=== PATIENT | female | born 1970 | race African-American/Black ===

== ENCOUNTER 2016-06-11 15:59 | Emergency (ER) | payer OTHER ==
[2016-06-11 16:08] VITALS: BP 130/58; PULSE 83; TEMP 97.5; BMI 35.2
--- NOTE | 2016-06-11 16:16 | PDOC ---
History of Present Illness - General History Source: Patient Exam Limitations: No Limitations - History of Present Illness Initial Comments: 06/11/16 16:16 The patient is a 45 year old female, with a significant past medical history of right breast CA (2 years ago), who presents to the emergency department with left knee bakers cyst burst yesterday. She reports noticing a lump by her knee during physical therapy yesterday, which she notes the cyst burst later during therapy. She reports there was some blood draining after the bursting. She denies any clicking, locking, or catching in her knee. She denies any numbness and tingling in her LE. She denies fever, chills, headache and dizziness. Allergies: Fentanyl Past surgical history: LEFT TKR (february). Mastectomy . Social history: denies EtOH, drug, and tobacco use. <Enrique Lewis - Last Filed: 06/11/16 16:16> <Jignesh Wong - Last Filed: 06/11/16 16:45> - General Chief Complaint: Wound Stated Complaint: BURST CYST ON LEFT KNEE Time Seen by Provider: 06/11/16 16:02 Past History <Enrique Lewis - Last Filed: 06/11/16 16:16> - Past Medical History Anemia: No Asthma: No Cancer: No (RT MASTECTOMY/TRAM 08/2010-FOLLOWED WITH CHEMO,RT) Cardiac Disorders: No CVA: No COPD: No CHF: No Dementia: No Diabetes: No GI Disorders: Yes (HEARTBURN) Disorders: Yes (RENAL CYSTS) HTN: Yes Hypercholesterolemia: No Liver Disease: No Seizures: No Thyroid Disease: No - Surgical History Abdominal Surgery: Yes (TRAM FLAP 2012) Appendectomy: No Cardiac Surgery: No Cholecystectomy: Yes (2008) Lung Surgery: No Neurologic Surgery: No Orthopedic Surgery: Yes (LEFT KNEE ARTHROSCOPY X 3. WILLY TO NECK AND BACK-LAST INJECTION OVER 1 YEAR,) - Psycho/Social/Smoking Cessation Hx Anxiety: No Suicidal Ideation: No Smoking Status: No Smoking History: Never smoked Have you smoked in the past 12 months: No Number of Cigarettes Smoked Daily: 0 Hx Alcohol Use: No Drug/Substance Use Hx: No Substance Use Type: None, Prescribed Hx Substance Use Treatment: No <Jignesh Wong - Last Filed: 06/11/16 16:45> - Past Medical History Allergies/Adverse Reactions: Allergies Allergy/AdvReac Type Severity Reaction Status Date / Time adhesive Allergy Intermediate Swelling Verified 06/11/16 16:01 fentanyl AdvReac Severe "HALLUCINAT Verified 06/11/16 16:01 IONS" Home Medications: Ambulatory Orders Zolpidem Tartrate [Ambien] 10 mg PO HS PRN 06/01/11 Docusate Sodium [Colace] 100 mg PO DAILY #0 capsule 06/08/11 Diphenhydramine HCl [Benadryl Capsule -] 25 mg PO HS PRN 06/09/13 Multivitamin [Multivitamins] 1 each PO DAILY 06/09/13 Sertraline HCl [Zoloft -] 100 mg PO HS 06/09/13 Tamoxifen Citrate 20 mg PO HS 06/09/13 Gabapentin 400 mg PO TID 02/28/16 Hydrochlorothiazide 25 mg PO HS 02/28/16 Ibuprofen 800 mg PO TID PRN 02/28/16 Oxycodone HCl [Oxycontin] 15 mg PO BID 02/28/16 Amlodipine Besylate [Norvasc] 5 mg PO HS 03/09/16 Diclofenac Epolamine [Flector] 1 each TD DAILY 03/09/16 Omeprazole 20 mg PO HS 03/09/16 Oxycodone HCl [Roxicodone -] 5 mg PO Q4H PRN #0 tablet MDD 6 03/11/16 Oxycodone HCl [Roxicodone -] 10 mg PO Q4H PRN #0 tablet MDD 6 03/11/16 Review of Systems - Review of Systems Constitutional: No: Symptoms Reported HEENTM: No: Symptoms Reported Respiratory: No: Symptoms reported Cardiac (ROS): No: Symptoms Reported ABD/GI: No: Symptoms Reported : No: Symptoms Reported Musculoskeletal: Yes: Joint Pain (Right knee pain and cyst. ) Integumentary: No: Symptoms Reported Neurological: No: Symptoms reported All Other Systems: Reviewed and Negative <Enrique Lewis - Last Filed: 06/11/16 16:16> *Physical Exam - Vital Signs Last Vital Signs Temp Pulse Resp BP Pulse Ox 97.5 F L 83 18 130/58 98 06/11/16 16:01 06/11/16 16:01 06/11/16 16:01 06/11/16 16:01 06/11/16 16:01 - Physical Exam General Appearance: Yes: Nourished, Appropriately Dressed HEENT: positive: EOMI, NAOMY, Normal ENT Inspection Neck: positive: Supple Respiratory/Chest: positive: Lungs Clear, Normal Breath Sounds Cardiovascular: positive: Regular Rhythm, Regular Rate Gastrointestinal/Abdominal: positive: Normal Bowel Sounds, Flat, Soft Musculoskeletal: positive: Other (Surgical scar well healing. Slight hyperpigmentation. Small granulation tissue. 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 <Enrique Lewis - Last Filed: 06/11/16 16:16> - Discharge Dispostion Admit: No <Jignesh Wong - Last Filed: 06/11/16 16:45> Diagnosis at time of Disposition: Visit for wound check - Discharge Dispostion Disposition: HOME Condition at time of disposition: Fair - Referrals Referrals: Nadeem Higgins MD [Staff Physician] - - Patient Instructions Printed Discharge Instructions: Minor Wounds (Alternative Therapy) Additional Instructions: clean and dry , daily dressing change at cream Follow up with PMD
== END 2016-06-11 16:54 | disposition home or self-care (01) ==
LOC: FER 15:59
DX: Z48.00 Encounter for change or removal of nonsurgical wound dressing (principal); Z85.3 Personal history of malignant neoplasm of breast; R12 Heartburn; I10 Essential (primary) hypertension
CPT/HCPCS: 99282-25

== ENCOUNTER 2017-06-22 06:54 | Inpatient (IN) | payer OTHER ==
[2017-06-18 13:21] VITALS: BMI 36.0
[2017-06-22] MEDS ORDERED: ceFAZolin SODIUM 1 GM VIAL ONE ×2 (07:59→21:44)
[2017-06-22] MEDS ORDERED: HEPARIN NA (PORCINE) 5,000 UNITS/ML 1ML VIAL ONE (08:00)
[2017-06-22] MEDS ORDERED: BACITRACIN 15 GM TUBE TOPICAL OINTMENT ONE ×4 (08:46→17:28)
[2017-06-22] MEDS ORDERED: MIDAZOLAM HCL 2 MG/2 ML SINGLE DOSE VIAL ONE ×2 (09:47)
[2017-06-22] MEDS ORDERED: EPINEPHrine/PF 1 MG/1 ML (1:1,000) AMPULE ONE ×3 (09:47→15:46)
[2017-06-22] MEDS ORDERED: fentaNYL CITRATE 250 MCG/5 ML VIAL ONE (09:47)
[2017-06-22] MEDS ORDERED: LIDOCAINE HCL 1%, 10 MG/ML (20ML VIAL) ONE (09:47)
[2017-06-22] MEDS ORDERED: ACETAMINOPHEN INJECTION 100 ML IVPB ONE ×2 (09:51→17:10)
[2017-06-22] MEDS ORDERED: DESFLURANE GAS 240 ML BOTTLE IH ONE (10:05)
[2017-06-22] MEDS ORDERED: DEXAMETHASONE SOD PHOSPHATE 4 MG/1 ML VIAL ONE (10:26)
[2017-06-22] MEDS ORDERED: PROPOFOL 20 ML ONE (10:26)
[2017-06-22] MEDS ORDERED: ROCURONIUM BROMIDE 50 MG/5 ML VIAL ONE ×2 (10:27)
[2017-06-22] MEDS ORDERED: ceFAZolin SODIUM 1 GM VIAL IVPB ONE ×2 (10:59→15:30)
[2017-06-22] MEDS ORDERED: PROMETHAZINE HCL 25 MG/1 ML VIAL IVPB PRN (18:51)
[2017-06-22] MEDS ORDERED: oxyCODONE HCL 5 MG TABLET PO PRN ×2 (18:51→19:57)
[2017-06-22] MEDS ORDERED: ONDANSETRON 4 MG/2 ML VIAL IVPUSH PRN (18:51)
[2017-06-22] MEDS ORDERED: LACTATED RINGERS SOLUTION 1,000 ML IV SCH ×2 (19:00→19:45)
[2017-06-22] MEDS ORDERED: ONDANSETRON 4 MG/2 ML VIAL IVPB PRN (19:31)
--- NOTE | 2017-06-22 19:38 | OP ---
Operative Note - Note: Operative Date: 06/22/17 Pre-Operative Diagnosis: right breast cancer with deformity of reconstructed breast Operation: Revision of right breast TRAM flap reconstruction and bilateral abdominal donor sites, Liposuction fat harvest from bilateral inner thighs, abdomen and back, Lipectomy of back fat Findings: above Post-Operative Diagnosis: Same as Pre-op Surgeon: Panfilo Pinedo Anesthesia: General Estimated Blood Loss (mls): 200 Drains & Tubes with Location: CARMELO x 2
[2017-06-22] MEDS ORDERED: MORPHINE SULFATE 10 MG/1 ML *VIAL IVPUSH PRN ×2 (19:39→19:56)
[2017-06-22] MEDS ORDERED: MORPHINE SULFATE 10 MG/1 ML *VIAL ONE (19:43)
[2017-06-22] MEDS: morphine CARPU-JECT 2 MG/1 ML DISP.SYRIN IVPUSH PRN ×4 (19:45→20:15)
--- NOTE | 2017-06-22 19:51 | PN ---
Progress Note (short form) - Note Progress Note: Patient evaluated Post-op from surgery VSS- AF, comfortable, UOP 700 in OR c/o soreness to the right forearm. Neurologically intact, full distal sensation and motor function of all peripheral nerves. Will observe. Plan for sq heparin starting 6 hours post op, early ambulation.
[2017-06-22] MEDS ORDERED: LACTATED RINGERS SOLUTION 1,000 ML/1,000 ML INFUS.BAG IV SCH (20:00)
[2017-06-22] MEDS: CEFAZOLIN 1 GM PUSH 1 GM/10 ML DISP.SYRIN IVPUSH SCH (21:50)
[2017-06-22] MEDS ORDERED: diphenhydrAMINE HCL 25 MG CAPSULE (FP) PO PRN (22:00)
[2017-06-22] MEDS: GABAPENTIN 400 MG CAPSULE (FP) PO SCH (23:54)
[2017-06-22] MEDS: PANTOPRAZOLE 20 MG TABLET (FP) PO SCH (23:54)
[2017-06-23] MEDS: HEPARIN NA (PORCINE) 5,000 UNITS/ML 1ML VIAL SQ SCH ×3 (01:06→23:37)
[2017-06-23] MEDS: CEFAZOLIN 1 GM PUSH 1 GM/10 ML DISP.SYRIN IVPUSH SCH ×4 (03:10→23:38)
[2017-06-23] MEDS: GABAPENTIN 400 MG CAPSULE (FP) PO SCH ×3 (05:34→23:36)
[2017-06-23] MEDS ORDERED: PT OWN MED DRAWER 7, Y5N ONE (06:38)
[2017-06-23] MEDS ORDERED: INSULIN DETEMIR 100 UNITS/ML MDV SQ ONE (06:40)
[2017-06-23] MEDS ORDERED: ZOLPIDEM TARTRATE 5 MG TABLET PO PRN (08:30)
--- NOTE | 2017-06-23 08:40 | PN ---
Progress Note (short form) - Note Progress Note: POD 1 post right breast revision VSS AF until one temp this morning 102.3 Clinically without sign of fever, distress, infection All wounds CDI Drainage SS/thin, high output as expected Ambulating, receiving SQ heparin R arm pain resolving with no neurologic deficits Will observe today, if remains afebrile will d/c this evening Continue ambulation and DVT prophylaxis
[2017-06-23] MEDS: oxyCODONE HCL 5 MG TABLET PO PRN ×2 (10:54→14:06)
[2017-06-23] MEDS: ACETAMINOPHEN 325 MG TABLET (FP) PO PRN ×2 (10:54→18:20)
[2017-06-23] MEDS: DOCUSATE SODIUM 100 MG CAPSULE (FP) PO SCH (10:54)
[2017-06-23] MEDS: POTASSIUM CHLORIDE 10 MEQ in SODIUM CHLORIDE 0.45% 1,000 ML IVPB SCH (11:19)
[2017-06-23 12:29] LABS: HEMATOCRIT 30.8 % (32.4-45.2); HEMOGLOBIN 9.9 GM/dL (10.7-15.3); MCH 27.3 pg (25.7-33.7); MCHC 32.2 g/dl (32.0-36.0); MEAN CELL VOLUME 84.8 fl (80-96); MEAN PLT VOLUME 8.9 fl (7.5-11.1); PLATELET COUNT 197 K/MM3 (134-434); RBC 3.64 M/mm3 (3.60-5.2); RDW 14.1 % (11.6-15.6); WHITE BLOOD COUNT 11.6 K/mm3 (4.0-10.0)
--- NOTE | 2017-06-23 15:18 | PN ---
Progress Note (short form) - Note Progress Note: Anesthesia Post op Pt seen and examined S:Alert and awake O: Vital Signs Temperature 98.6 F 06/23/17 14:48 Pulse Rate 111 H 06/23/17 14:48 Respiratory Rate 18 06/23/17 14:48 Blood Pressure 104/68 06/23/17 14:48 O2 Sat by Pulse Oximetry (%) 97 06/22/17 22:20 CBC, BMP 06/23/17 11:50 A/P: s/p revision right tram flap Doing well post op Continue current care Lobito Penn MD
[2017-06-23] MEDS ORDERED: LACTATED RINGERS SOLUTION 1,000 ML/1,000 ML INFUS.BAG IV STA (18:38)
[2017-06-23] MEDS ORDERED: HYDROCHLOROTHIAZIDE 25 MG TABLET (FP) PO SCH (22:00)
[2017-06-23] MEDS ORDERED: SERTRALINE HCL 50 MG TABLET (FP) PO SCH (22:00)
[2017-06-23] MEDS ORDERED: amLODIPine BESYLATE 5 MG TABLET (FP) PO SCH (22:00)
[2017-06-23] MEDS: PANTOPRAZOLE 20 MG TABLET (FP) PO SCH (23:36)
[2017-06-24] MEDS: POTASSIUM CHLORIDE 10 MEQ in SODIUM CHLORIDE 0.45% 1,000 ML IVPB SCH ×2 (00:29→10:39)
[2017-06-24] MEDS: CEFAZOLIN 1 GM PUSH 1 GM/10 ML DISP.SYRIN IVPUSH SCH ×2 (02:37→09:49)
[2017-06-24] MEDS: GABAPENTIN 400 MG CAPSULE (FP) PO SCH ×2 (06:22→13:21)
--- NOTE | 2017-06-24 08:46 | PN ---
Progress Note (short form) - Note Progress Note: POD 2 Patient with one episode of fever yesterday afternoon and only low grade since. Ambulating, on SQ heparin, Duplex last night negative to the limits of the study. No leg pain or swelling beyond the appropriate for the lipo Clinically with no signs of infection: All wounds checked with no drainage or erythema, no pain on urination, no cough Arm pain is resolving with no neurologic symptoms. Tolerating reg diet. CARMELO thin serous fluid I have discussed with the patient that the likely source of her low grade temps within this short post op period is atelectasis and that she must be compliant with incentive spirometer (which she is) I have discussed drain care and log with patient. She is asking to go home, which is ok as long as she returns to ER if she has more fever, new pain, leg symptoms or SOB. She will be discharged on eliquis antibiotics and pain meds.
[2017-06-24] MEDS ORDERED: SODIUM CHLORIDE 500 ML IV ONE (09:45)
[2017-06-24] MEDS: HEPARIN NA (PORCINE) 5,000 UNITS/ML 1ML VIAL SQ SCH (09:49)
[2017-06-24] MEDS: DOCUSATE SODIUM 100 MG CAPSULE (FP) PO SCH (09:49)
[2017-06-24 15:17] VITALS: BP 129/69; PULSE 82; TEMP 99.6
--- NOTE | 2017-06-25 09:30 | OP ---
DATE OF OPERATION: 06/22/2017 TITLE OF PROCEDURES: 1. Revision of right TRAM (transverse rectus abdominis) flap reconstructed breast by rigottomy release of inset TRAM flap scars, reduction of lateral breast fold deformity. 2. Free fat grafting to right TRAM flap for volume enhancement. 3. Adjacent tissue transfer rearrangement of TRAM flap donor site deformity with local skin and subcutaneous flaps. ATTENDING SURGEON: Panfilo Pinedo MD CADD TECHNICIAN: There were no assistants. ANESTHESIA: General endotracheal anesthesia. The patient was marked in holding area, awake and aware of all incisions and resulting scars, including those on fat donor sites as well as on the TRAM flap and the abdominal donor site. Patient was counseled on all risks, benefits, and alternatives to the procedure, which she understood and agreed to proceed. PROCEDURE FOLLOWS: Patient was brought to the operating room. She was intubated in a supine position. Centeno catheter was placed, which was removed at the end of the procedure. Patient was then positioned properly in a prone position using chest rolls, all padding and positional aids, and padding to pressure points. She was then prepped and draped in standard surgical fashion. A time-out was called. Patient, procedure, incision sites were verified. At this point, patients back was infiltrated with wetting solution. The wetting solution was for the first 3 L 1 L of normal saline, 1 ampule of 1:1000 epinephrine, and 2 mL of 1% lidocaine plain. For the 2 nd 3 L of wetting solution, it was 1 L of normal saline with 1 ampule of 1:1000 epinephrine per liter. The tumescent solution was infiltrated to the back and medial thighs. A full 25 minutes was awaited for hemostatic effect. At this point, the fat harvesting procedure was then performed using a combination of 5 and 4 mm cannulas, power-assisted liposuction machine with a Revolve Fat Harvesting System. The full yield of the fat harvest was 250 mL of useable injectable fat. However, the lipoaspirates were as follows: On the left flank was 1050 mL, on the right flank was 1400 mL, the left inner thigh 100 mL, the right inner thigh 100 mL, the left upper back 800 mL, and the right upper back was 700 mL. The end point was the appearance of blood in the lipoaspirate and smooth, even contour. As was discussed with the patient, to correct loose skin rolls on the back, a direct excision of skin rolls was to be performed. This was performed bilaterally using bilateral obliquely transverse scars on the back. Excision of skin, fat is performed. The tissues were slightly undermined to release points of ligamentous attachment, and the closure was performed with a series of interrupted buried fascial system 2-0 Vicryl suture with a quilting element of the deep posterior chest wall. Additionally, a running 3-0 PDS V-Loc within the mid dermis was performed followed by running subcuticular 3-0 Monocryl suture. Each of these closures performed over a size 10 round Hector drain, secured with a 3-0 silk drain suture. At this point, dressings were applied. The patient was then turned to a supine position onto stretcher, and she was then brought in supine position back onto the operating table. All extremities were secured. A pillow was placed beneath the knees. Pressure points were carefully padded. Position was checked and confirmed by Anesthesia and nursing teams. Patient was reprepped and draped. At this point, the further fat harvesting was performed, first by infiltration of wetting solution. A total of 3 L of wetting solution was injected here on the anterior surface, part of the abdomen and medial thighs and flanks. A full 20 minutes was awaited for hemostatic effect of the wetting solution. After which, fat was then further harvested as it was on the posterior side adding to the injectable yield. The harvest was performed with a power-assisted liposuction machine using 5 and 4 mm cannulas. The lipoaspirates were from the right medial thigh 900 mL, from the left medial thigh 700 mL, and from the abdomen 1550 mL. The total lipoaspirate for the case was 6200 mL. At this point, all liposuction was performed through 1 cm stab wound incisions, all of which were closed with a series of interrupted 5-0 nylon sutures. Using a 1.7-mm injection cannula, several points along the lateral border of the TRAM flap were located, and 5-mm incisions were made for injection. Ragsdale technique of multiple-pass small-volume injections was performed. A total of 250 mL of fat was injected into the right surrounding tissue of the TRAM flap as well as the TRAM flap itself. The superior depressed border of the TRAM flap was released with a direct scar release rigottomy allowing for better upper pole slope. The lateral border included a distortion of lateral portion of the inframammary fold continuing onto the back. This was directly excised, recreating the inframammary fold laterally with a series of interrupted sutures from the flap down to the lateral chest wall using 2-0 Vicryl suture. Skin was then closed with a series of interrupted buried deep dermal 3-0 Monocryl suture followed by a running subcuticular 3-0 Monocryl suture. This recreated the lateral fold of the TRAM flap, and the fat grafting augmented the volume and corrected for a superior pole deformity. The injection sites were closed with a series of interrupted 5-0 nylon sutures. The deformities of the TRAM flap abdominal wall donor site were then addressed. These were marked for excision. The abdominal flap was mobilized medially in order to correct for the lateral deformities, and closure was performed after excision of skin and fat on the lateral lower portion of the abdominal TRAM flap donor site deformity. This was a skin and subcutaneous flap that on each side was roughly 50 sq cm, 2 of these were performed with medial mobilization of the skin, fat, and Scarpas layer fascia. The Scarpas layer fascia was closed with a series of interrupted buried 2-0 Vicryl suture. Skin after being mobilized medially was closed with a series of interrupted buried deep dermal 3-0 Monocryl sutures followed by running subcuticular 3-0 Monocryl sutures. This was performed bilaterally. All incisions were closed with 5-0 nylon sutures in addition to the flap rearrangements. At the completion of the procedure, all dressings were applied with Steri-Strips, 4x4 gauze, a compression abdominal and thigh garment was applied, a surgical bra was applied. Patient was awoken from anesthesia, transferred to recovery without complications. Centeno catheter was removed. Larry [id number]
--- NOTE | 2017-06-25 16:04 | PATH ---
Surgical Pathology Report Patient Name: LEESA CROW Med. Rec. #: [id number] /Age/Gender: 1970 (Age: 46) / F Account: [id number] Location: [facility] MED/SURG Taken: 06/22/2017 Received: 06/23/2017 Reported: 06/25/2017 Physicians: Panfilo Pinedo Specimen(s) Received EXCESS DONOR SITE TISSUE Clinical History Right breast cancer Final Diagnosis EXCESS DONOR SITE TISSUE, RIGHT BREAST REVISION: BENIGN SKIN WITH SCAR AND UNDERLYING FIBROADIPOSE TISSUE. Electronically Signed Mar Forbes M.D. Gross Description Received in formalin labeled "excess donor site tissue," is a 671 g, 21.0 x 18.5 x 4.0 cm aggregate of multiple irregular, unoriented portions of fibroadipose tissue and brown skin. One of the portions of skin displays a possible well healed scar. Sectioning reveals foci of white fibrous tissue. Plant Machinist sections are submitted in 3 cassettes. /06/24/2017 [facility]06/24/2017
== END 2017-06-24 14:28 | disposition home or self-care (01) | DRG 363 ==
LOC: JASUSAT 06:54 → J8W 22:49 → JASUSAT 22:50
PROVIDERS: ADMIT Plastic Surgery; ATTEND Plastic Surgery
PROC: 0JDN3ZZ Extraction of Right Lower Leg Subcutaneous Tissue and Fascia, Percutaneous Approach (ICD-10-PCS; 2017-06-22)
PROC: 0JDP3ZZ Extraction of Left Lower Leg Subcutaneous Tissue and Fascia, Percutaneous Approach (ICD-10-PCS; 2017-06-22)
PROC: 0JD73ZZ Extraction of Back Subcutaneous Tissue and Fascia, Percutaneous Approach (ICD-10-PCS; 2017-06-22)
PROC: 0J9630Z Drainage of Chest Subcutaneous Tissue and Fascia with Drainage Device, Percutaneous Approach (ICD-10-PCS; 2017-06-22)
PROC: 0KXK0Z6 Transfer Right Abdomen Muscle, Transverse Rectus Abdominis Myocutaneous Flap, Open Approach (ICD-10-PCS; principal; 2017-06-22 09:00)
PROC: 0JD83ZZ Extraction of Abdomen Subcutaneous Tissue and Fascia, Percutaneous Approach (ICD-10-PCS; 2017-06-22 09:00)
DX: N65.0 Deformity of reconstructed breast (principal); C50.911 Malignant neoplasm of unspecified site of right female breast
CPT/HCPCS: 36415; 71045-TC-FY; 85027; 88304-TC; 93970-TC; 94010; 94760; J1644

== ENCOUNTER 2017-06-24 21:13 | Emergency (ER) | payer OTHER ==
[2017-06-24 22:20] VITALS: BP 146/75; PULSE 78; TEMP 99.8; BMI 36.0
--- NOTE | 2017-06-24 22:35 | PDOC ---
History of Present Illness - General History Source: Patient Exam Limitations: No Limitations - History of Present Illness Initial Comments: 06/24/17 23:21 The patient is a 45 year old female with a significant PMH of right breast CA s/ p recent right breast revision TRAM flap reconstruction and bilateral abdominal donor sites, liposuction from bilateral inner thighs, abdomen and back on 2017 who presents to the emergency department with fever (T. max 102F), generalized malaise, and bilateral LE swelling beginning approximately yesterday. The patient notes her bilateral LE swelling is worse in the right LE. The patient reports having a bilateral duplex US done yesterday which showed no evidence of DVT. The patients surgery was conducted by Dr. Panfilo Pineod. She also notes constipation over the past week. The patient denies chest pain, shortness of breath, headache and dizziness. Denies chills, nausea, vomit, diarrhea. Denies dysuria, frequency, urgency and hematuria. Allergies: Adhesive, Fentanyl. Past surgical history: TRAM flap. (2012, 2017). Liposuction (2017). Left TKR. Mastectomy. Cholecystectomy. Social history: No reported cigarette, alcohol, or drug use. Plastics: Dr. Panfilo Pinedo <Dario Ramsey - Last Filed: 06/25/17 00:44> - General History Source: Patient <Joe Funez - Last Filed: 06/25/17 02:17> - General Chief Complaint: SIRS, Suspected/Possible Stated Complaint: SWELLING OF LEG/FEVER Time Seen by Provider: 06/24/17 22:27 Past History <Dario Ramsey - Last Filed: 06/25/17 00:44> - Past Medical History Anemia: No Cancer: Yes (RT MASTECTOMY/TRAM 08/2010-FOLLOWED WITH CHEMO,RT) COPD: No GI Disorders: Yes (HEARTBURN) Disorders: Yes (RENAL CYSTS) HTN: Yes Psychiatric Problems: Yes (DEPRESSION) - Surgical History Abdominal Surgery: Yes (TRAM FLAP 2012) Cholecystectomy: Yes (2008) Orthopedic Surgery: Yes (LEFT KNEE ARTHROSCOPY X 3. WILLY TO NECK AND BACK-LAST INJECTION OVER 1 YEAR,) - Suicide/Smoking/Psychosocial Hx Smoking Status: No Smoking History: Never smoked Have you smoked in the past 12 months: No Number of Cigarettes Smoked Daily: 0 Information on smoking cessation initiated: No Hx Alcohol Use: No Drug/Substance Use Hx: No Substance Use Type: None, Prescribed Hx Substance Use Treatment: No <WilliamdatJoe - Last Filed: 06/25/17 02:17> - Past Medical History Allergies/Adverse Reactions: Allergies Allergy/AdvReac Type Severity Reaction Status Date / Time adhesive Allergy Intermediate Swelling Verified 06/22/17 07:46 fentanyl AdvReac Severe "HALLUCINAT Verified 06/22/17 07:46 IONS" Home Medications: Ambulatory Orders Zolpidem Tartrate [Ambien] 10 mg PO HS PRN 06/01/11 Docusate Sodium [Colace] 100 mg PO DAILY #0 capsule 06/08/11 Diphenhydramine HCl [Benadryl Capsule -] 25 mg PO HS PRN 06/09/13 Multivitamin [Multivitamins] 1 each PO DAILY 06/09/13 Sertraline HCl [Zoloft -] 100 mg PO HS 06/09/13 Tamoxifen Citrate 20 mg PO HS 06/09/13 Gabapentin 400 mg PO TID 02/28/16 Hydrochlorothiazide 25 mg PO HS 02/28/16 Amlodipine Besylate [Norvasc] 5 mg PO HS 03/09/16 Diclofenac Epolamine [Flector] 1 each TD DAILY 03/09/16 Omeprazole 20 mg PO HS 03/09/16 oxyCODONE HCL [Roxicodone -] 10 mg PO Q4H PRN #0 tablet MDD 6 03/11/16 Apixaban [Eliquis] 2.5 mg PO BID #30 tablet 06/24/17 Review of Systems - Review of Systems Able to Perform ROS?: Yes Comments:: 06/24/17 23:22 CONSTITUTIONAL: (+) Fever. (+) Generalized malaise. (+) Body aches. Absent: chills, diaphoresis, generalized weakness, loss of appetite HEENT: Absent: rhinorrhea, nasal congestion, throat pain, throat swelling, difficulty swallowing, mouth swelling, ear pain, eye pain, visual Changes CARDIOVASCULAR: Absent: chest pain, syncope, palpitations, irregular heart rate, lightheadedness , peripheral edema RESPIRATORY: Absent: cough, shortness of breath, dyspnea with exertion, orthopnea, wheezing, stridor, hemoptysis GASTROINTESTINAL: (+) Constipation. Absent: abdominal pain, abdominal distension, nausea, vomiting, diarrhea, melena , hematochezia GENITOURINARY: Absent: dysuria, frequency, urgency, hesitancy, hematuria, flank pain, genital pain MUSCULOSKELETAL: Absent: myalgia, arthralgia, joint swelling SKIN: Absent: rash, itching, pallor HEMATOLOGIC/IMMUNOLOGIC: Absent: easy bleeding, easy bruising, lymphadenopathy, frequent infections ENDOCRINE: Absent: unexplained weight gain, unexplained weight loss, heat intolerance, cold intolerance NEUROLOGIC: Absent: headache, focal weakness or paresthesias, dizziness, unsteady gait, seizure, mental status changes, bladder or bowel incontinence PSYCHIATRIC: Absent: anxiety, depression, suicidal or homicidal ideation, hallucinations. <Dario Ramsey - Last Filed: 06/25/17 00:44> *Physical Exam - Vital Signs Last Vital Signs Temp Pulse Resp BP Pulse Ox 99.8 F H 78 20 146/75 100 06/24/17 22:17 06/24/17 22:17 06/24/17 22:17 06/24/17 22:17 06/24/17 22:17 - Physical Exam Comments: 06/24/17 23:22 GENERAL: Well developed, well nourished. Awake and alert. No acute distress. HEENT: Normocephalic, atraumatic. PERRLA, EOMI. No conjunctival pallor. Sclera are non- icteric. Moist mucous membranes. Oropharynx is clear. NECK: Supple. Full ROM. No JVD. Carotid pulses 2+ and symmetric, without bruits. No thyromegaly. No lymphadenopathy. CARDIOVASCULAR: (+) Unable to examine chest as patient will not remove post- surgical binder PULMONARY: (+) Unable to examine chest as patient will not remove post-surgical binder ABDOMINAL: (+) Unable to examine abdomen as patient will not remove post- surgical binder MUSCULOSKELETAL: Normal range of motion at all joints. No bony deformities or tenderness. No CVA tenderness. EXTREMITIES: (+) Bilateral LE edema, right worse than left. No cyanosis. No clubbing. No calf tenderness. SKIN: Warm and dry. Normal capillary refill. No rashes. No jaundice. NEUROLOGICAL: Alert, awake, appropriate. Cranial nerves 2-12 intact. No deficits to light touch and temperature in face, upper extremities and lower extremities. No motor deficits in the in face, upper extremities and lower extremities. Normoreflexic in the upper and lower extremities. Normal speech. Toes are downgoing bilaterally. Gait is normal without ataxia. PSYCHIATRIC: Cooperative. Good eye contact. Appropriate mood and affect. <Dario Ramsey - Last Filed: 06/25/17 00:44> - Vital Signs Last Vital Signs Temp Pulse Resp BP Pulse Ox 99.8 F H 78 20 146/75 100 06/24/17 22:17 06/24/17 22:17 06/24/17 22:17 06/24/17 22:17 06/24/17 22:17 <Joe Funez - Last Filed: 06/25/17 02:17> ED Treatment Course - LABORATORY CBC & Chemistry Diagram: 06/24/17 23:30 06/24/17 23:30 <Dario Ramsey - Last Filed: 06/25/17 00:44> - LABORATORY CBC & Chemistry Diagram: 06/24/17 23:30 06/24/17 23:30 <Joe Funez - Last Filed: 06/25/17 02:17> *DC/Admit/Observation/Transfer - Attestations Scribe Attestion: 06/24/17 23:22 Documentation prepared by Dario Ramsey, acting as medical technologist chemistry for Joe Funez DO. <Dario Ramsey - Last Filed: 06/25/17 00:44> - Discharge Dispostion Admit: No <Joe Funez - Last Filed: 06/25/17 02:17> Diagnosis at time of Disposition: Fever, Leg swelling - Discharge Dispostion Disposition: HOME Condition at time of disposition: Stable - Referrals Referrals: Wayne Pinedo [Primary Care Provider] - - Patient Instructions Printed Discharge Instructions: DI for Fever (Symptom) -- Adult Additional Instructions: Please follow up with your surgeon to have your surgical wounds evaluated. REturn if any problems. - Post Discharge Activity
[2017-06-24 23:40] LABS: BASO % 0.6 % (0-2.0); EOS % 1.6 % (0-4.5); HEMATOCRIT 27.4 % (32.4-45.2); HEMOGLOBIN 9.2 GM/dL (10.7-15.3); LYMPH % 32.6 % (8-40); MCHC 33.8 g/dl (32.0-36.0); NEUT % 55.2 % (42.8-82.8); PLATELET COUNT 178 K/MM3 (134-434); RDW 13.6 % (11.6-15.6); WHITE BLOOD COUNT 12.2 K/mm3 (4.0-10.0)
[2017-06-24 23:52] LABS: INR 1.05 (0.82-1.09); PROTHROMBIN TIME (PATIENT) 11.9 SEC (9.98-11.88)
[2017-06-25 00:04] LABS: ALBUMIN 2.6 g/dl (3.4-5.0); ALK PHOS 57 U/L (45-117); ANION GAP 7 (8-16); BILIRUBIN,TOTAL 0.5 mg/dL (0.2-1.0); BLOOD UREA NITROGEN 9 mg/dL (7-18); CALCIUM 8.9 mg/dL (8.5-10.1); CHLORIDE 102 mmol/L (98-107); CO2 31 mmol/L (21-32); CREATININE 0.6 mg/dL (0.55-1.02); GLUCOSE,RANDOM 99 mg/dL (74-106); POTASSIUM 3.2 mmol/L (3.5-5.1); SGOT/AST 96 U/L (15-37); SGPT/ALT 55 U/L (12-78); SODIUM 140 mmol/L (136-145)
[2017-06-25 00:16] LABS: URINE APPEARANCE CLEAR; URINE BILIRUBIN NEGATIVE (NEGATIVE); URINE BLOOD NEGATIVE (NEGATIVE); URINE COLOR STRAW; URINE GLUCOSE (UA) NEGATIVE (NEGATIVE); URINE KETONE NEGATIVE (NEGATIVE); URINE LEUK ESTERASE 2+ (NEGATIVE); URINE NITRITE NEGATIVE (NEGATIVE); URINE PROTEIN NEGATIVE (NEGATIVE); URINE UROBILINOGEN NEGATIVE mg/dL (0.2-1.0)
[2017-06-25 00:21] LABS: EPI CELLS RARE /HPF (FEW); URINE BACTERIA RARE /hpf (NONE SEEN)
[2017-06-25] MEDS ORDERED: POTASSIUM CHLORIDE TABS 20 MEQ TABLET.ER (FP) PO ONE ×2 (01:54→02:03)
== END 2017-06-25 03:02 | disposition home or self-care (01) ==
LOC: JER 21:13
DX: R50.9 Fever, unspecified (principal); R60.0 Localized edema; Z98.890 Other specified postprocedural states; Z90.11 Acquired absence of right breast and nipple
CPT/HCPCS: 36415; 71045-TC-FY; 80053; 81003; 81015; 83605; 84703; 85025; 85610; 87040; 87086; 93970-TC; 99281-25

== ENCOUNTER 2020-09-18 04:16 | Day surgery (SDC) | payer OTHER ==
[2020-09-16 09:18] VITALS: BMI 36.2
[2020-09-18 08:13] LABS: EPI CELLS >36 /uL (0-25.1); HYALINE CASTS 0 /uL (0-3.1); PH,URINE 5.5 (5.0-8.0); URINE APPEARANCE CLEAR; URINE BACTERIA 299 /uL (0-1359); URINE BILIRUBIN NEGATIVE (NEGATIVE); URINE COLOR YELLOW; URINE GLUCOSE (UA) NEGATIVE (NEGATIVE); URINE KETONE NEGATIVE (NEGATIVE); URINE LEUK ESTERASE 1+ (NEGATIVE); URINE NITRITE NEGATIVE (NEGATIVE); URINE PROTEIN NEGATIVE (NEGATIVE); URINE RBC 6 /uL (0-23.9); URINE UROBILINOGEN 0.2 mg/dL (0.2-1.0); URINE WBC 43 /uL (0-25.8)
[2020-09-18] MEDS ORDERED: ROPIVACAINE HCL 0.5% 30ML VIAL ONE (08:18)
[2020-09-18] MEDS ORDERED: MIDAZOLAM HCL 2 MG/2 ML SINGLE DOSE VIAL ONE ×3 (08:21→08:59)
[2020-09-18] MEDS ORDERED: PROPOFOL 20 ML ONE (08:59)
[2020-09-18] MEDS ORDERED: ceFAZolin SODIUM 1 GM VIAL ONE (09:49)
[2020-09-18] MEDS ORDERED: ceFAZolin SODIUM 1 GM VIAL IVPB ONE (09:50)
[2020-09-18] MEDS ORDERED: ONDANSETRON 4 MG/2 ML VIAL IVPUSH PRN (11:28)
[2020-09-18] MEDS ORDERED: oxyCODONE HCL 5 MG TABLET PO PRN (11:28)
[2020-09-18] MEDS ORDERED: LACTATED RINGERS SOLUTION 1,000 ML IV SCH (11:30)
[2020-09-18 13:00] VITALS: BP 119/63; PULSE 71; TEMP 983
[2020-09-18] MEDS ORDERED: ONDANSETRON 4 MG/2 ML VIAL ONE (13:40)
[2020-09-18] MEDS ORDERED: ONDANSETRON *ODT* 4 MG TABLET ONE (13:46)
[2020-09-18] MEDS ORDERED: ONDANSETRON *ODT* 4 MG TABLET SL ONE (13:51)
== END 2020-09-18 14:40 | disposition home or self-care (01) ==
LOC: JASU-SURG 04:16
PROVIDERS: ATTEND Orthopaedic Surgery
PROC: 0LM24ZZ Reattachment of Left Shoulder Tendon, Percutaneous Endoscopic Approach (ICD-10-PCS; 2020-09-18)
PROC: 0RHK44Z Insertion of Internal Fixation Device into Left Shoulder Joint, Percutaneous Endoscopic Approach (ICD-10-PCS; 2020-09-18)
PROC: 0RNK4ZZ Release Left Shoulder Joint, Percutaneous Endoscopic Approach (ICD-10-PCS; 2020-09-18)
PROC: 0RNK4ZZ Release Left Shoulder Joint, Percutaneous Endoscopic Approach (ICD-10-PCS; principal; 2020-09-18 09:30)
PROC: 0MM24ZZ Reattachment of Left Shoulder Bursa and Ligament, Percutaneous Endoscopic Approach (ICD-10-PCS; 2020-09-18 09:30)
DX: M75.122 Complete rotator cuff tear or rupture of left shoulder, not specified as traumatic (principal); M24.812 Other specific joint derangements of left shoulder, not elsewhere classified; S43.432A Superior glenoid labrum lesion of left shoulder, initial encounter; X58.XXXA Exposure to other specified factors, initial encounter; Y92.9 Unspecified place or not applicable; Y93.9 Activity, unspecified
CPT/HCPCS: 29807; 29823; 29826; 29827; C1713; 81003; 94760; Q0162

== ENCOUNTER 2021-08-06 04:24 | Day surgery (SDC) | payer OTHER ==
[2021-08-04 15:07] VITALS: BMI 32.2
[2021-08-06 08:12] LABS: HEMATOCRIT 35.7 % (32.4-45.2); HEMOGLOBIN 12.1 GM/dL (10.7-15.3); MCH 26.6 pg (25.7-33.7); MEAN CELL VOLUME 78.2 fl (80-96); MEAN PLT VOLUME 8.2 fl (7.5-11.1); PLATELET COUNT 247 10^3/uL (134-434); RBC 4.56 M/mm3 (3.60-5.2); RDW 14.3 % (11.6-15.6); WHITE BLOOD COUNT 6.7 K/mm3 (4.0-10.0)
[2021-08-06 08:18] LABS: EPI CELLS 4 /uL (0-25.1); HYALINE CASTS 0 /uL (0-3.1); URINE APPEARANCE CLEAR; URINE BACTERIA 3 /uL (0-1359); URINE BILIRUBIN NEGATIVE (NEGATIVE); URINE COLOR YELLOW; URINE GLUCOSE (UA) NEGATIVE (NEGATIVE); URINE KETONE NEGATIVE (NEGATIVE); URINE LEUK ESTERASE TRACE (NEGATIVE); URINE NITRITE NEGATIVE (NEGATIVE); URINE PROTEIN NEGATIVE (NEGATIVE); URINE RBC 4 /uL (0-23.9); URINE UROBILINOGEN 0.2 mg/dL (0.2-1.0); URINE WBC 10 /uL (0-25.8)
[2021-08-06 08:23] LABS: INR 1.09 (0.83-1.09); PROTHROMBIN TIME (PATIENT) 12.5 SEC (9.7-13.0)
[2021-08-06 08:25] LABS: ACTIVATED PTT 37.4 SECONDS (25.2-36.5)
[2021-08-06] MEDS ORDERED: ROPIVACAINE HCL 0.5% 30ML VIAL ONE (08:26)
[2021-08-06] MEDS ORDERED: DEXAMETHASONE SOD PHOSPHATE 10 MG/1 ML VIAL ONE (08:26)
[2021-08-06 08:30] LABS: CALCIUM 10.7 mg/dL (8.5-10.1)
[2021-08-06 08:31] LABS: ALBUMIN 3.5 g/dl (3.4-5.0); BLOOD UREA NITROGEN 10.7 mg/dL (7-18)
[2021-08-06] MEDS ORDERED: MIDAZOLAM HCL 2 MG/2 ML SINGLE DOSE VIAL ONE ×3 (08:31→09:12)
[2021-08-06 08:34] LABS: CREATININE 0.4 mg/dL (0.55-1.3)
[2021-08-06 08:35] LABS: BILIRUBIN,TOTAL 0.4 mg/dL (0.2-1); TOT PROT 7.3 g/dl (6.4-8.2)
[2021-08-06] MEDS ORDERED: ZOLPIDEM TARTRATE 5 MG TABLET PO PRN (08:48)
[2021-08-06] MEDS ORDERED: ceFAZolin SODIUM 1 GM VIAL IVPB ONE (09:33)
[2021-08-06] MEDS ORDERED: PROPOFOL 20 ML ONE ×2 (09:52)
[2021-08-06] MEDS ORDERED: PHENYLEPHRINE HCL 10 MG/1 ML SINGLE DOSE VIAL ONE (09:53)
[2021-08-06] MEDS ORDERED: DEXAMETHASONE SOD PHOSPHATE 4 MG/1 ML VIAL ONE (09:55)
[2021-08-06] MEDS ORDERED: ONDANSETRON 4 MG/2 ML VIAL ONE (09:55)
[2021-08-06] MEDS ORDERED: ceFAZolin SODIUM 1 GM VIAL ONE (09:55)
[2021-08-06] MEDS ORDERED: LIDOCAINE HCL/PF 2% SDV 5ML VIAL ONE (09:55)
[2021-08-06] MEDS ORDERED: ONDANSETRON 4 MG/2 ML VIAL IVPUSH PRN (11:18)
[2021-08-06] MEDS: CYCLOBENZAPRINE HCL 5 MG TABLET PO SCH (12:32)
[2021-08-06] MEDS: DOCUSATE SODIUM 100 MG CAPSULE (FP) PO SCH (12:32)
[2021-08-06] MEDS: amLODIPine BESYLATE 5 MG TABLET (FP) PO SCH (12:32)
[2021-08-06] MEDS: GABAPENTIN 400 MG CAPSULE PO SCH ×2 (13:52→22:56)
[2021-08-06] MEDS: LACTATED RINGERS SOLUTION 1,000 ML IV SCH (13:53)
[2021-08-06] MEDS ORDERED: TAMOXIFEN CITRATE 10 MG TABLET PO SCH (22:00)
[2021-08-06] MEDS ORDERED: HYDROCHLOROTHIAZIDE 25 MG TABLET (FP) PO SCH (22:00)
[2021-08-06] MEDS ORDERED: PANTOPRAZOLE 20 MG TABLET PO SCH (22:00)
[2021-08-06] MEDS ORDERED: SERTRALINE HCL 50 MG TABLET (FP) PO SCH (22:00)
[2021-08-07] MEDS: GABAPENTIN 400 MG CAPSULE PO SCH ×2 (06:29→13:18)
[2021-08-07] MEDS: oxyCODONE HCL 5 MG TABLET PO PRN ×2 (06:32→11:14)
[2021-08-07] MEDS: DOCUSATE SODIUM 100 MG CAPSULE (FP) PO SCH (09:29)
[2021-08-07] MEDS: amLODIPine BESYLATE 5 MG TABLET (FP) PO SCH (09:29)
[2021-08-07] MEDS: CYCLOBENZAPRINE HCL 5 MG TABLET PO SCH (09:30)
[2021-08-07] MEDS: LACTATED RINGERS SOLUTION 1,000 ML IV SCH (12:40)
[2021-08-07 14:16] VITALS: BP 131/64; PULSE 86; TEMP 98.8
[2021-08-07] MEDS ORDERED: FLU VACC QS2021-22(6MOS UP)/PF 60 MCG/0.5 ML SYRINGE IM ONE (15:00)
== END 2021-08-07 16:07 | disposition home or self-care (01) ==
LOC: JASU-SURG 04:24 → JASUSAT 04:24 → J6S 11:00 → JASUSAT 08-07 16:07
PROVIDERS: ATTEND Orthopaedic Surgery
PROC: 0RSKXZZ Reposition Left Shoulder Joint, External Approach (ICD-10-PCS; 2021-08-06)
PROC: 0RBK4ZZ Excision of Left Shoulder Joint, Percutaneous Endoscopic Approach (ICD-10-PCS; principal; 2021-08-06 09:00)
PROC: 0RCK4ZZ Extirpation of Matter from Left Shoulder Joint, Percutaneous Endoscopic Approach (ICD-10-PCS; 2021-08-06 09:00)
DX: M24.612 Ankylosis, left shoulder (principal); M24.012 Loose body in left shoulder
CPT/HCPCS: 36415; 80053; 81003; 85027; 85610; 85730; 90686; 93005; 93010; 94760; J1100